=== PATIENT | female | born 1955 | race Caucasian/White ===

== ENCOUNTER 2016-11-13 08:29 | Day surgery (SDC) | payer BC ==
[2016-11-13] MEDS ORDERED: LACTATED RINGERS 1,000 ML IV ONE (09:22)
[2016-11-13] MEDS ORDERED: fentaNYL 250 MCG/5 ML VIAL IVP ONE (10:30)
[2016-11-13] MEDS ORDERED: MIDAZOLAM 2 MG/2 ML VIAL IVP ONE (10:30)
== END 2016-11-13 08:30 | disposition home or self-care (01) ==
PROC: 0DBP8ZZ Excision of Rectum, Via Natural or Artificial Opening Endoscopic (ICD-10-PCS; principal; 2016-11-13 09:45)
DX: Z12.11 Encounter for screening for malignant neoplasm of colon (principal); K62.1 Rectal polyp; D17.79 Benign lipomatous neoplasm of other sites; E66.9 Obesity, unspecified; Z68.29 Body mass index [BMI] 29.0-29.9, adult; Z87.891 Personal history of nicotine dependence; Z88.0 Allergy status to penicillin; Z88.1 Allergy status to other antibiotic agents; Z91.030 Bee allergy status
CPT/HCPCS: 45385; J3010; J7120

== ENCOUNTER 2017-02-28 13:29 | Outpatient (CLI) | payer BC | END 2017-02-28 13:30 | disposition home or self-care (01) | DX: M51.36 Other intervertebral disc degeneration, lumbar region (principal); M47.896 Other spondylosis, lumbar region; M41.86 Other forms of scoliosis, lumbar region ==

== ENCOUNTER 2018-07-12 15:48 | Outpatient (CLI) | payer BC ==
--- NOTE | 2018-07-12 16:57 | XRAY Report ---
Reason: Right foot pain Procedure Date: 07/12/2018 Accession Number: [id number] / [id number] Procedure: XR - Foot 3 View RT CPT Code: FULL RESULT: EXAM: RIGHT FOOT RADIOGRAPHY EXAM DATE: 07/12/2018 04:21 PM. CLINICAL HISTORY: Right foot pain. COMPARISON: None. TECHNIQUE: 3 views. FINDINGS: Bones: No traumatic or destructive bone abnormalities. Large plantar calcaneal enthesophyte. Simple bone cyst in the navicular bone. Joints: Hallux valgus with degenerative changes at the first MTP joint. No subluxations. Soft Tissues: Unremarkable. IMPRESSION: 1. Hallux valgus with degenerative changes at the first MTP joint. 2. Large plantar calcaneal enthesophyte. 3. Simple bone cyst in the navicular. RADIA
--- NOTE | 2018-07-12 17:07 | XRAY Report ---
Reason: Right Shoulder pain Procedure Date: 07/12/2018 Accession Number: [id number] / [id number] Procedure: XR - Shoulder 3 View RT CPT Code: FULL RESULT: EXAM: RIGHT SHOULDER RADIOGRAPHY EXAM DATE: 07/12/2018 04:21 PM. CLINICAL HISTORY: Right shoulder pain. COMPARISON: None. TECHNIQUE: 3 views. FINDINGS: Bones: No acute traumatic or destructive bony abnormalities. Metallic anchors in the proximal humerus. Joints: The glenohumeral and acromioclavicular joints are normal. Soft tissues: The visualized hemithorax is unremarkable. No soft tissue calcification. IMPRESSION: Metallic anchors in the proximal humerus, otherwise unremarkable right shoulder radiography. RADIA
--- NOTE | 2018-07-12 17:08 | XRAY Report ---
Reason: Right ankle pain Procedure Date: 07/12/2018 Accession Number: [id number] / [id number] Procedure: XR - Ankle 3 View RT CPT Code: FULL RESULT: EXAM: RIGHT ANKLE RADIOGRAPHY EXAM DATE: 07/12/2018 04:21 PM. CLINICAL HISTORY: Right ankle pain radiating down the foot for 6 months. COMPARISON: None. TECHNIQUE: 3 views. FINDINGS: Bones: No traumatic or destructive bone abnormalities. Large plantar calcaneal enthesophyte noted. Joints: Normal. No effusion. No subluxations. The ankle mortise is normally aligned. Soft Tissues: Unremarkable. IMPRESSION: Large plantar calcaneal enthesophyte, otherwise unremarkable right ankle radiography. RADIA
== END 2018-07-12 15:49 | disposition home or self-care (01) ==
LOC: DI 15:48
PROVIDERS: ATTEND Nurse Practitioner Family
DX: M25.511 Pain in right shoulder (principal); M19.071 Primary osteoarthritis, right ankle and foot; M77.31 Calcaneal spur, right foot; M20.11 Hallux valgus (acquired), right foot; M85.671 Other cyst of bone, right ankle and foot

== ENCOUNTER 2019-04-21 08:54 | Outpatient (CLI) | payer BC | END 2019-04-21 08:55 | disposition home or self-care (01) | LOC: DI 08:54 | PROVIDERS: ATTEND Physician Assistant | DX: R01.1 Cardiac murmur, unspecified (principal) | CPT/HCPCS: 93306 ==

== ENCOUNTER 2021-12-12 11:40 | Outpatient (CLI) | payer MEDICARE, BC ==
--- NOTE | 2021-12-18 09:14 | Mammography Report ---
BILATERAL DIGITAL SCREENING MAMMOGRAM 3D/2D: 12/12/2021 CLINICAL: Routine screening. Comparison is made to exams dated: 02/15/2015 mammogram, 08/11/2013 mammogram, and 02/26/2011 mammogram - [facility]. The tissue of both breasts is predominantly fatty. No significant masses, calcifications, or other findings are seen in either breast. There has been no significant interval change. IMPRESSION: NEGATIVE There is no mammographic evidence of malignancy. A 1 year screening mammogram is recommended. This exam was interpreted at Station ID: [id number]. NOTE: For mammograms, a report in lay terms will be sent to the patient. Approximately 15% of breast malignancies will not be visualized mammographically. In the management of a palpable breast mass, a negative mammogram must not discourage biopsy of a clinically suspicious lesion. Electronically Signed By: Justin Mera acr/penrad:12/18/2021 08:42:28 ACR BI-RADS Category 1: Negative 3341F PARENCHYMAL PATTERN: (F) - The breast(s) demonstrate(s) diffuse fatty replacement. BI-RADS CATEGORY: (1) - 1 RECOMMENDATION: (ANNUAL) - Recommend routine annual screening mammography. [id number] 1 year screening LATERALITY: (B)
== END 2021-12-12 11:41 | disposition home or self-care (01) ==
LOC: DI.S 11:40
PROVIDERS: ATTEND Nurse Practitioner Family
DX: Z12.31 Encounter for screening mammogram for malignant neoplasm of breast (principal)

== ENCOUNTER 2021-12-13 10:41 | Outpatient (CLI) | payer MEDICARE, BC ==
--- NOTE | 2021-12-13 13:09 | DEXA Report ---
PROCEDURE: Dexa Spine and/or Hip INDICATIONS: POST MENOPAUSAL TECHNIQUE: Dual energy x-ray absorptiometry (DXA) was performed on a [employer] System. Regions measur ed are the AP Spine, femoral neck, and if needed forearm. COMPARISON: None. FINDINGS: Lumbar Spine: Bone Mineral Density 1.210 g/cm/cm,T score 0.2, normal Left Hip: Bone Mineral Density 0.951 g/cm/cm,T score -0.4, normal Left Femoral Neck: Bone Mineral Density 0.928 g/cm/cm, T score -0.8, normal (T score greater or equal to -1.0: NORMAL) (T score from -1.1 to -2.4: OSTEOPENIA) (T score less than or equal to -2.5 to: OSTEOPOROSIS) Impression: Normal bone mineral density Patients with diagnosis of osteoporosis or osteopenia should have regular bone mineral density assess ment. For those eligible for Medicare, routine testing is allowed once every 2 years. Testing frequ ency can be increased for patients who have rapidly progressing disease or for those who are receivin g medical therapy to restore bone mass. Reviewed by: Justin Mera on 12/13/2021 1:08 PM MEHRAN Approved by: Justin Mera on 12/13/2021 1:08 PM PST Station ID: [id number]
== END 2021-12-13 10:42 | disposition home or self-care (01) ==
LOC: DI 10:41
PROVIDERS: ATTEND Nurse Practitioner Family
DX: Z78.0 Asymptomatic menopausal state (principal)

== ENCOUNTER 2022-07-25 09:42 | Outpatient (CLI) | payer MEDICARE, BC ==
--- NOTE | 2022-07-25 15:04 | Ultrasound Report ---
PROCEDURE: Duplex Lwr Ext Arterial Bilat INDICATIONS: INTERMITTENT CLAUDICATION TECHNIQUE: Color and pulse Doppler interrogation was performed of both lower extremity arterial systems, with im age documentation. COMPARISON: None FINDINGS: Right lower extremity: Mild to moderate calcific plaque throughout the lower extremities worsening in the infrapopliteal art eries. Multiphasic waveforms throughout the right lower extremity. ROM 1.1. Left lower extremity: Mild to moderate calcific plaque throughout the lower extremities worsening in the infrapopliteal art eries. Multiphasic waveforms throughout the left lower extremity. ROM 1.1. IMPRESSION: 1. Diffuse calcific atherosclerotic disease worse in the infrapopliteal arteries. 2. No focal stenosis by imaging or velocity/waveform criteria. 3. Normal bilateral ABIs. Reviewed by: Justin Mera on 07/25/2022 3:03 PM PDT Approved by: Justin Mera on 07/25/2022 3:03 PM PDT Station ID: [id number]
--- NOTE | 2022-07-25 17:00 | Ultrasound Report ---
PROCEDURE: Ankle Brachial Index INDICATIONS: INTERMITTENT CLAUDICATION TECHNIQUE: Ankle-brachial indices were obtained bilaterally and recorded. COMPARISONS: None. FINDINGS: Right ankle brachial index (ROM): 1.1 Left ankle brachial index (ROM): 1.1 Healing potential: Ankle pressures >55 mm Hg in non-diabetics and >80 mm Hg in diabetics are likely to achieve primary h ealing of ischemic foot ulcers. Toe pressures >30 mm Hg are likely to achieve primary healing of ischemic foot ulcers, toe or transme tatarsal amputations. IMPRESSION: Bilateral ankle-brachial indices are within normal limits. Reviewed by: Dion Oliver MD on 07/25/2022 4:59 PM PDT Approved by: Dion Oliver MD on 07/25/2022 4:59 PM PDT Station ID: [id number]
== END 2022-07-25 09:43 | disposition home or self-care (01) ==
LOC: DI 09:42
PROVIDERS: ATTEND Nurse Practitioner Family
DX: I73.9 Peripheral vascular disease, unspecified (principal)
CPT/HCPCS: 93922; 93925

== ENCOUNTER 2022-09-18 09:53 | Outpatient (CLI) | payer MEDICARE, BC ==
--- NOTE | 2022-09-18 17:44 | XRAY Report ---
PROCEDURE: Hips 2V BILAT INDICATIONS: BILATERAL HIP PAIN, RIGHT KNEE PAIN TECHNIQUE: AP view of the pelvis and bilateral frog-leg lateral views of the hips were acquired. COMPARISON: None FINDINGS: Bones: No fractures or dislocations. No suspicious bony lesions. The visualized pelvic ring appear s intact. Mild bilateral hip degenerative arthritis. Soft tissues: No suspicious soft tissue calcifications or masses. IMPRESSION: Mild bilateral hip degenerative arthritis. No evidence acute bony abnormality of the pelvis and bilat eral hips. If clinical suspicion and/or symptoms persist, further assessment with repeat plain films or advanced imaging (e.g., CT, MRI, or bone scan) may be helpful for further assessment. Reviewed by: Kevon Brush MD on 09/18/2022 5:42 PM PST Approved by: Kevon Brush MD on 09/18/2022 5:42 PM PST Station ID: [id number]
--- NOTE | 2022-09-18 17:45 | XRAY Report ---
PROCEDURE: Knee 4 View RT INDICATIONS: BILATERAL HIP PAIN, RIGHT KNEE PAIN TECHNIQUE: 4 views of the right knee(s) were acquired. COMPARISON: None. FINDINGS: Bones: No fractures or dislocations. No suspicious bony lesions. Mild degenerative arthritis. Mini mal osteophytes. Mild medial and lateral compartment joint space loss. Soft tissues: No joint effusion. No suspicious soft tissue calcifications. IMPRESSION: Mild degenerative arthritis of the right knee. Reviewed by: Kevon Brush MD on 09/18/2022 5:43 PM PST Approved by: Kevon Bruhs MD on 09/18/2022 5:43 PM PST Station ID: [id number]
== END 2022-09-18 09:54 | disposition home or self-care (01) ==
LOC: DI 09:53
PROVIDERS: ATTEND Nurse Practitioner Family
DX: M16.0 Bilateral primary osteoarthritis of hip (principal); M17.11 Unilateral primary osteoarthritis, right knee

== ENCOUNTER 2023-01-09 13:37 | Outpatient (CLI) | payer MEDICARE, BC ==
--- NOTE | 2023-01-10 10:22 | Mammography Report ---
BILATERAL DIGITAL SCREENING MAMMOGRAM 3D/2D: 01/09/2023 CLINICAL: Routine screening. Comparison is made to exams dated: 12/12/2021 mammogram, 02/15/2015 mammogram, and 08/11/2013 mammogra m - [facility]. There are scattered areas of fibroglandular density in both breasts (category b / 25%-50% glandular t issue). No significant masses, calcifications, or other findings are seen in either breast. There has been no significant interval change. IMPRESSION: NEGATIVE There is no mammographic evidence of malignancy. A 1 year screening mammogram is recommended. Based on the Tyrer Cuzick model (a risk assessment model) the patients lifetime risk is 5.9% and her 10 year risk is 3.1%. According to the ACR, ACS, and NCCN guidelines, an annual breast MRI exam tony g with mammogram is recommended if the patients lifetime risk is 20% or greater. This exam was interpreted at Station ID: [id number]. NOTE: For mammograms, a report in lay terms will be sent to the patient. Approximately 15% of breast malignancies will not be visualized mammographically. In the management of a palpable breast mass, a negative mammogram must not discourage biopsy of a clinically suspicious lesion. Electronically Signed By: Iraj hubbard/tiffany:01/09/2023 14:29:27 letter sent: No_Letter ACR BI-RADS Category 1: Negative 3341F PARENCHYMAL PATTERN: (A) - The breast(s) demonstrate(s) scattered fibroglandular densities. BI-RADS CATEGORY: (1) - 1 Mammogram [id number] 1 year screening LATERALITY: (B)
== END 2023-01-09 13:38 | disposition home or self-care (01) ==
LOC: DI 13:37
PROVIDERS: ATTEND Nurse Practitioner Family
DX: Z12.31 Encounter for screening mammogram for malignant neoplasm of breast (principal)

== ENCOUNTER 2024-01-20 09:48 | Outpatient (CLI) | payer MEDICARE, BC | END 2024-01-20 09:49 | disposition home or self-care (01) | LOC: RT 09:48 | PROVIDERS: ATTEND Nurse Practitioner Family | DX: J45.909 Unspecified asthma, uncomplicated (principal) | CPT/HCPCS: 94010; 94727; 94729 ==

== ENCOUNTER 2024-01-22 08:53 | Outpatient (CLI) | payer MEDICARE, BC ==
--- NOTE | 2024-01-22 12:41 | Ultrasound Report ---
PROCEDURE: Aorta Screening INDICATIONS: FAM HIST OF AAA TECHNIQUE: Real time scanning was performed of the aorta and iliac arteries, with image documentatio n. COMPARISON: None. FINDINGS: Aorta: Proximal aortic diameter measures 2.1 x 2.4 cm. Mid-aorta measures 2.1 x 1.9 cm. Distal aor tic diameter is 1.8 x 2.1 cm. Iliac arteries: Right common iliac artery measures 1.2 x 1.2 cm. Left common iliac artery measures 1.6 x 1.1 cm. IMPRESSION: 1.No abdominal aortic aneurysm or ectasia. 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 Right common iliac arteries normal in caliber, w here visualized. Recommended intervals for follow-up imaging of ectatic aortas and abdominal aortic aneurysms, per ACR consensus guidelines: 2.5-2.9 cm: 5 years 3.0-3.4 cm: 3 years 3.5-3.9 cm: 2 years 4.0-4.4 cm: 1 year 4.5-4.9 cm: 6 months + endovascular referral 5.0-5.5 cm: 3-6 months + endovascular referral Reviewed by: Torsten Serrano MD on 01/22/2024 12:39 PM PDT Approved by: Torsten Serrano MD on 01/22/2024 12:39 PM PDT Station ID: [id number]
== END 2024-01-22 08:54 | disposition home or self-care (01) ==
LOC: DI 08:53
PROVIDERS: ATTEND Nurse Practitioner Family
DX: I77.89 Other specified disorders of arteries and arterioles (principal); Z82.49 Family history of ischemic heart disease and other diseases of the circulatory system

== ENCOUNTER 2024-01-28 14:51 | Outpatient (CLI) | payer MEDICARE, BC ==
--- NOTE | 2024-01-29 10:12 | Mammography Report ---
BILATERAL DIGITAL SCREENING MAMMOGRAM 3D/2D: 01/28/2024 CLINICAL: Routine screening. Comparison is made to exams dated: 01/09/2023 mammogram, 12/12/2021 mammogram, and 02/15/2015 mammogram - [facility]. Both breasts are almost entirely fatty (category a/<25% glandular tissue). No significant masses, calcifications, or other findings are seen in either breast. There has been no significant interval change. IMPRESSION: NEGATIVE There is no mammographic evidence of malignancy. A 1 year screening mammogram is recommended. Based on the Tyrer Cuzick model (a risk assessment model) the patient's lifetime risk is 3.7% and her 10 year risk is 2.0%. According to the ACR, ACS, and NCCN guidelines, an annual breast MRI exam tony g with mammogram is recommended if the patient's lifetime risk is 20% or greater. This exam was interpreted at Station ID: [id number]. NOTE: For mammograms, a report in lay terms will be sent to the patient. Approximately 15% of breast malignancies will not be visualized mammographically. In the management of a palpable breast mass, a negative mammogram must not discourage biopsy of a clinically suspicious lesion. Electronically Signed By: Beth thibodeaux/tiffany:01/29/2024 08:35:35 letter sent: No_Letter ACR BI-RADS Category 1: Negative 3341F PARENCHYMAL PATTERN: (F) - The breast(s) demonstrate(s) diffuse fatty replacement. BI-RADS CATEGORY: (1) - 1 RECOMMENDATION: (ANNUAL) - Recommend routine annual screening mammography. [id number] 1 year screening LATERALITY: (B)
== END 2024-01-28 14:52 | disposition home or self-care (01) ==
LOC: DI 14:51
PROVIDERS: ATTEND Nurse Practitioner Family
DX: Z12.31 Encounter for screening mammogram for malignant neoplasm of breast (principal)